=== PATIENT | female | born 1965 | race American Indian/Alaskan Native ===

== ENCOUNTER 2021-11-10 13:54 | Emergency (ER) | payer MEDICARE, OTHER ==
[2021-11-10] MEDS ORDERED: FAMOTIDINE 20 MG TAB PO ONE (14:48)
[2021-11-10] MEDS ORDERED: ALUM-MAG HYDROXIDE-SIMETHICONE 200-200-20MG/5ML ORAL LIQD 30 ML PO ONE (14:48)
[2021-11-10] MEDS ORDERED: HYOSCYAMINE SUBL 0.125 MG TAB SL ONE (14:48)
--- NOTE | 2021-11-10 15:35 | XRay Report ---
ABDOMEN 2 VIEW(S) INDICATION / CLINICAL INFORMATION: Abdominal pain. COMPARISON: None available. FINDINGS: TUBES / LINES: None. BOWEL GAS PATTERN: No distended loops of intestines to suggest obstruction. A moderate to large colon ic fecal load. FREE AIR / EXTRALUMINAL GAS: None seen. ADDITIONAL FINDINGS: Partially visualized enlarged cardiac silhouette cardiac pacing leads and cardia c valve replacement. IMPRESSION: Nonobstructive bowel gas pattern. Moderate to large colonic fecal load. Signer Name: David Vera MD Signed: 11/10/2021 3:30 PM Workstation Name: [id number]
[2021-11-10 15:52] LABS: Eosinophils # (Auto) 0.1 K/mm3 (0.0-0.4); Eosinophils % (Auto) 3.2 % (0.0-4.3); Hematocrit 35.9 % (30.3-42.9); Hemoglobin 11.4 gm/dl (10.1-14.3); Lymphocytes % (Auto) 26.5 % (13.4-35.0); Mean Corpuscular HGB Conc 32 % (30-34); Mean Corpuscular Volume 91 fl (79-97); Monocytes # (Auto) 0.5 K/mm3 (0.0-0.8); Monocytes % (Auto) 13.4 % (0.0-7.3); Platelet Count 171 K/mm3 (140-440); Red Blood Count 3.95 M/mm3 (3.65-5.03); Red Cell Distribution Width 15.1 % (13.2-15.2)
[2021-11-10 16:13] LABS: Alanine Aminotransferase 10 units/L (7-56); Albumin 4.3 g/dL (3.9-5); BUN/Creatinine Ratio 16; Blood Urea Nitrogen 13 mg/dL (7-17); Calcium 9.6 mg/dL (8.4-10.2); Hemolysis Index 7
--- NOTE | 2021-11-10 16:40 | Emergency Department Report ---
ED General Adult HPI - General Chief complaint: Abdominal Pain Stated complaint: AFB-ACID REFLUX Time Seen by Provider: 11/10/21 14:10 Source: patient Mode of arrival: Ambulatory Limitations: No Limitations - History of Present Illness Initial comments: Patient is a 56-year-old female presents emergency room complaints of epigastric abdominal burning for a couple of months. She states that she did have a history of acid reflux back in her 30s. She has not had an endoscopy. She states her symptoms do worsen after eating. She denies any fever, vomiting, diarrhea, hematochezia, melena, hematemesis, urinary symptoms. Past medical history of A. fib. No allergies to medications - Related Data Home Medications Medication Instructions Recorded Confirmed Last Taken Dronedarone HCl [Multaq] 400 mg PO BID 01/03/15 01/03/15 01/03/15 lisinopriL [Lisinopril] 10 mg PO DAILY 01/03/15 01/03/15 01/02/15 Previous Rx's Medication Instructions Recorded Last Taken Type cephALEXin [Keflex] 500 mg PO BID #14 capsule 01/04/15 Unknown Rx Docusate Sodium [Colace] 100 mg PO BID PRN #60 capsule 11/10/21 Unknown Rx Famotidine [Pepcid] 40 mg PO QHS #30 tablet 11/10/21 Unknown Rx Polyethylene Glycol 3350 [Miralax] 17 gm PO DAILY #1 bottle 11/10/21 Unknown Rx Sucralfate [Carafate] 1 gm PO ACHS 7 Days #21 tablet 11/10/21 Unknown Rx Allergies Allergy/AdvReac Type Severity Reaction Status Date / Time No Known Allergies Allergy Verified 11/10/21 14:03 ED Review of Systems ROS: Stated complaint: AFB-ACID REFLUX Other details as noted in HPI Comment: All other systems reviewed and negative ED Past Medical Hx - Past Medical History Hx Hypertension: Yes Additional medical history: a-fib - Social History Smoking Status: Never Smoker - Medications Home Medications: Home Medications Medication Instructions Recorded Confirmed Last Taken Type Dronedarone HCl [Multaq] 400 mg PO BID 01/03/15 01/03/15 01/03/15 History lisinopriL [Lisinopril] 10 mg PO DAILY 01/03/15 01/03/15 01/02/15 History cephALEXin [Keflex] 500 mg PO BID #14 capsule 01/04/15 Unknown Rx Docusate Sodium [Colace] 100 mg PO BID PRN #60 capsule 11/10/21 Unknown Rx Famotidine [Pepcid] 40 mg PO QHS #30 tablet 11/10/21 Unknown Rx Polyethylene Glycol 3350 [Miralax] 17 gm PO DAILY #1 bottle 11/10/21 Unknown Rx Sucralfate [Carafate] 1 gm PO ACHS 7 Days #21 tablet 11/10/21 Unknown Rx ED Physical Exam - General Limitations: No Limitations General appearance: alert, in no apparent distress - Head Head exam: Present: atraumatic, normocephalic - Eye Eye exam: Present: normal appearance - ENT ENT exam: Present: mucous membranes moist - Respiratory Respiratory exam: Present: normal lung sounds bilaterally. Absent: respiratory distress, wheezes, rales, rhonchi, stridor, chest wall tenderness, accessory muscle use, decreased breath sounds, prolonged expiratory - Cardiovascular Cardiovascular Exam: Present: regular rate, normal rhythm, other (incision present to the left chest wall appears clean, dry, intact, without signs of infection) - GI/Abdominal GI/Abdominal exam: Present: soft, normal bowel sounds. Absent: distended, tenderness, guarding, rebound, rigid - Neurological Exam Neurological exam: Present: alert, oriented X3 - Psychiatric Psychiatric exam: Present: normal affect, normal mood - Skin Skin exam: Present: warm, dry, intact ED Course Vital Signs 11/10/21 17:02 Temperature 98.3 F Pulse Rate 61 Respiratory 16 Rate Blood Pressure 131/76 [Right] O2 Sat by Pulse 99 Oximetry ED Medical Decision Making - Lab Data Result diagrams: 11/10/21 15:18 11/10/21 15:18 Lab Results 11/10/21 11/10/21 Range/Units 15:18 15:18 WBC 3.8 L (4.5-11.0) K/mm3 RBC 3.95 (3.65-5.03) M/mm3 Hgb 11.4 (10.1-14.3) gm/dl Hct 35.9 (30.3-42.9) % MCV 91 (79-97) fl MCH 29 (28-32) pg MCHC 32 (30-34) % RDW 15.1 (13.2-15.2) % Plt Count 171 (140-440) K/mm3 Lymph % (Auto) 26.5 (13.4-35.0) % Calvert % (Auto) 13.4 H (0.0-7.3) % Eos % (Auto) 3.2 (0.0-4.3) % Baso % (Auto) 1.0 (0.0-1.8) % Lymph # (Auto) 1.0 L (1.2-5.4) K/mm3 Calvert # (Auto) 0.5 (0.0-0.8) K/mm3 Eos # (Auto) 0.1 (0.0-0.4) K/mm3 Baso # (Auto) 0.0 (0.0-0.1) K/mm3 Seg Neutrophils % 55.9 (40.0-70.0) % Seg Neutrophils # 2.1 (1.8-7.7) K/mm3 Sodium 143 (137-145) mmol/L Potassium 3.9 (3.6-5.0) mmol/L Chloride 104.5 (98-107) mmol/L Carbon Dioxide 27 (22-30) mmol/L Anion Gap 15 mmol/L BUN 13 (7-17) mg/dL Creatinine 0.8 (0.6-1.2) mg/dL Estimated GFR > 60 ml/min BUN/Creatinine Ratio 16 % Glucose 105 H (65-100) mg/dL Calcium 9.6 (8.4-10.2) mg/dL Total Bilirubin 0.70 (0.1-1.2) mg/dL AST 18 (5-40) units/L ALT 10 (7-56) units/L Alkaline Phosphatase 55 (35-129) units/L Total Protein 8.5 H (6.3-8.2) g/dL Albumin 4.3 (3.9-5) g/dL Albumin/Globulin Ratio 1.0 % Lipase 13 (13-60) units/L - Radiology Data Radiology results: report reviewed Ordering Physician: CATHI RODRIGUEZ Date of Service: 11/10/21 Procedure(s): XR abdomen 2V Accession Number(s): [id number] cc: CATHI RODRIGUEZ Fluoro Time In Minutes: ABDOMEN 2 VIEW(S) INDICATION / CLINICAL INFORMATION: Abdominal pain. COMPARISON: None available. FINDINGS: TUBES / LINES: None. BOWEL GAS PATTERN: No distended loops of intestines to suggest obstruction. A moderate to large colonic fecal load. FREE AIR / EXTRALUMINAL GAS: None seen. ADDITIONAL FINDINGS: Partially visualized enlarged cardiac silhouette cardiac pacing leads and cardiac valve replacement. IMPRESSION: Nonobstructive bowel gas pattern. Moderate to large colonic fecal load. Signer Name: David Santos MD Signed: 11/10/2021 3:30 PM Workstation Name: [id number] Transcribed By: SEAN Dictated By: DAVID SANTOS MD Electronically Authenticated By: DAVID SANTOS MD Signed Date/Time: 11/10/21 1530 DD/ 1529 TD/TT: - Medical Decision Making Patient is a 56-year-old female presents emergency room complaints of epigastric abdominal burning for a couple of months. She states that she did have a history of acid reflux back in her 30s. She has not had an endoscopy. She states her symptoms do worsen after eating. She denies any fever, vomiting, diarrhea, hematochezia, melena, hematemesis, urinary symptoms. Past medical history of A. fib. No allergies to medications. Vitals are normal. No abdominal tenderness on exam. Labs are stable. Abdominal x-ray: Nonobstructive bowel gas pattern. Moderate to large colonic fecal load. Discussed findings with patient. Patient given medication while in the emergency department with improvement of her symptoms and she states that she has no burning in her abdomen currently. Discussed the importance of GI follow- up as she likely needs endoscopy. Discussed constipation findings with patient increasing her water and fiber intake. Patient given prescription for medications. Advised Please take medication as prescribed. Follow-up with a primary care doctor. Follow-up with a GI doctor. Return to emergency room for any new or worsening symptoms. Critical care attestation.: If time is entered above; I have spent that time in minutes in the direct care of this critically ill patient, excluding procedure time. ED Disposition Clinical Impression: Epigastric burning sensation Constipation Qualifiers: Constipation type: unspecified constipation type Qualified Code(s): K59.00 - Constipation, unspecified Disposition: HOME / SELF CARE / HOMELESS Is pt being admited?: No Does the pt Need Aspirin: No Condition: Stable Instructions: Food Choices for Gastroesophageal Reflux Disease, Adult, Constipation, Adult, [id number], Abdominal Pain (ED) Additional Instructions: Please take medication as prescribed. Follow-up with a primary care doctor. Follow-up with a GI doctor. Return to emergency room for any new or worsening symptoms. Prescriptions: Famotidine [Pepcid] 40 mg PO QHS #30 tablet Sucralfate [Carafate] 1 gm PO ACHS 7 Days #21 tablet Docusate Sodium [Colace] 100 mg PO BID PRN #60 capsule PRN Reason: constipation Polyethylene Glycol 3350 [Miralax] 17 gm PO DAILY #1 bottle Referrals: PRIMARY CARE, [Primary Care Provider] - 3-5 Days [facility] [Provider Group] - 3-5 Days Time of Disposition: 16:38 Print Language: SOU[place]
[2021-11-10 17:03] VITALS: BP 131/76
== END 2021-11-10 17:03 | disposition home or self-care (01) ==
LOC: ED 13:54
DX: R10.13 Epigastric pain (principal); K59.00 Constipation, unspecified; I10 Essential (primary) hypertension
CPT/HCPCS: 36415; 74019; 80053; 83690; 85025; 99284